=== PATIENT | female | born 1950 | race Asian ===

== ENCOUNTER 2016-07-30 08:12 | Outpatient (CLI) | payer OTHER ==
[2016-07-30 08:26] LABS: PLATELET COUNT 268 K/uL (152-353)
[2016-07-30 09:52] LABS: POTASSIUM 3.5 mmol/L (3.6-5.2)
== END 2016-07-30 19:21 | disposition home or self-care (01) ==
LOC: LAB 08:12
PROVIDERS: Orthopaedic Surgery
DX: M86.8X8 Other osteomyelitis, other site (principal)
CPT/HCPCS: 80053; 85027

== ENCOUNTER 2016-08-06 07:41 | Outpatient (CLI) | payer OTHER ==
[2016-08-06 08:00] LABS: PLATELET COUNT 378 K/uL (152-353)
[2016-08-06 08:16] LABS: POTASSIUM 3.1 mmol/L (3.6-5.2)
== END 2016-08-06 19:19 | disposition home or self-care (01) ==
LOC: LAB 07:41
PROVIDERS: Nurse Practitioner Family
DX: M86.8X8 Other osteomyelitis, other site (principal)
CPT/HCPCS: 80053; 85027

== ENCOUNTER 2016-08-13 08:09 | Outpatient (CLI) | payer OTHER ==
[2016-08-13 08:55] LABS: POTASSIUM 3.3 mmol/L (3.6-5.2)
[2016-08-13 09:34] LABS: PLATELET COUNT 316 K/uL (152-353)
== END 2016-08-13 22:08 | disposition home or self-care (01) ==
LOC: LAB 08:09
PROVIDERS: Nurse Practitioner Family
DX: M86.8X8 Other osteomyelitis, other site (principal)
CPT/HCPCS: 80053; 85027

== ENCOUNTER 2016-08-20 07:58 | Outpatient (CLI) | payer OTHER ==
[2016-08-20 08:52] LABS: PLATELET COUNT 392 K/uL (152-353)
[2016-08-21 13:38] LABS: POTASSIUM 3.4 mmol/L (3.6-5.2); SODIUM 137.4 mmol/L (136-145)
== END 2016-08-20 22:55 | disposition home or self-care (01) ==
LOC: LAB 07:58
PROVIDERS: Nurse Practitioner Family
DX: M86.00 Acute hematogenous osteomyelitis, unspecified site (principal)
CPT/HCPCS: 80053; 85027

== ENCOUNTER 2016-12-10 10:55 | Outpatient (CLI) | payer OTHER | END 2016-12-10 10:57 | disposition short-term general hospital (02) | LOC: AMB 10:55 | DX: M79.644 Pain in right finger(s) (principal) | CPT/HCPCS: A0425; A0429 ==

== ENCOUNTER 2017-02-18 10:38 | Outpatient (CLI) | payer OTHER | END 2017-02-18 19:27 | disposition home or self-care (01) | LOC: LAB 10:38 | DX: Z51.81 Encounter for therapeutic drug level monitoring (principal) | CPT/HCPCS: 80164 ==

== ENCOUNTER 2017-03-18 10:11 | Outpatient (CLI) | payer OTHER | END 2017-03-18 19:35 | disposition home or self-care (01) | LOC: LAB 10:11 | DX: Z51.81 Encounter for therapeutic drug level monitoring (principal) | CPT/HCPCS: 80164 ==

== ENCOUNTER 2017-03-29 07:05 | Outpatient (CLI) | payer OTHER | END 2017-03-29 08:05 | disposition home or self-care (01) | LOC: LAB 07:05 | DX: Z51.81 Encounter for therapeutic drug level monitoring (principal) | CPT/HCPCS: 80164 ==

== ENCOUNTER 2017-04-17 08:03 | Outpatient (CLI) | payer OTHER | END 2017-04-17 09:05 | disposition home or self-care (01) | LOC: LAB 08:03 | PROVIDERS: Internal Medicine | DX: Z79.899 Other long term (current) drug therapy (principal); E78.4 Other hyperlipidemia; Z51.81 Encounter for therapeutic drug level monitoring | CPT/HCPCS: 80061; 80076 ==

== ENCOUNTER 2017-08-09 10:42 | Outpatient (CLI) | payer OTHER | END 2017-08-09 23:37 | disposition home or self-care (01) | LOC: LAB 10:42 | DX: Z51.81 Encounter for therapeutic drug level monitoring (principal) | CPT/HCPCS: 80164 ==

== ENCOUNTER 2017-08-26 08:49 | Outpatient (CLI) | payer OTHER ==
[2017-08-26 09:09] LABS: PLATELET COUNT 290 K/uL (152-353)
[2017-08-26 09:29] LABS: POTASSIUM 4.1 mmol/L (3.6-5.2)
== END 2017-08-26 21:08 | disposition home or self-care (01) ==
LOC: LAB 08:49
PROVIDERS: Internal Medicine Hematology & Oncology
DX: R53.83 Other fatigue (principal); D50.8 Other iron deficiency anemias
CPT/HCPCS: 80053; 82728; 83540; 84466; 85027

== ENCOUNTER 2017-08-28 10:38 | Outpatient (CLI) | payer OTHER | END 2017-08-29 04:40 | disposition home or self-care (01) | LOC: RAD 10:38 | DX: J18.9 Pneumonia, unspecified organism (principal); M54.89 Other dorsalgia ==

== ENCOUNTER 2017-09-04 06:47 | Outpatient (CLI) | payer OTHER | END 2017-09-04 19:06 | disposition home or self-care (01) | LOC: LABW 06:47 | DX: E03.8 Other specified hypothyroidism (principal) | CPT/HCPCS: 84439; 84443 ==

== ENCOUNTER 2017-09-16 10:28 | Outpatient (CLI) | payer OTHER | END 2017-09-16 19:36 | disposition home or self-care (01) | LOC: LAB 10:28 | DX: R10.84 Generalized abdominal pain (principal); K21.9 Gastro-esophageal reflux disease without esophagitis | CPT/HCPCS: 86318 ==

== ENCOUNTER 2017-10-02 13:58 | Outpatient (CLI) | payer OTHER | END 2017-10-02 21:48 | disposition home or self-care (01) | LOC: LAB 13:58 | DX: D64.89 Other specified anemias (principal) | CPT/HCPCS: 85018 ==

== ENCOUNTER 2017-10-16 13:41 | Outpatient (CLI) | payer OTHER | END 2017-10-16 18:22 | disposition home or self-care (01) | LOC: LAB 13:41 | DX: D64.89 Other specified anemias (principal) | CPT/HCPCS: 85018 ==

== ENCOUNTER 2017-10-23 12:01 | Outpatient (CLI) | payer OTHER | END 2017-10-23 18:13 | disposition home or self-care (01) | LOC: LAB 12:01 | DX: D64.89 Other specified anemias (principal) | CPT/HCPCS: 85018 ==

== ENCOUNTER 2017-12-09 11:04 | Outpatient (CLI) | payer OTHER | END 2017-12-09 21:22 | disposition home or self-care (01) | LOC: LAB 11:04 | DX: D64.89 Other specified anemias (principal) | CPT/HCPCS: 85018 ==

== ENCOUNTER 2017-12-20 11:08 | Outpatient (CLI) | payer OTHER | END 2017-12-20 19:24 | disposition home or self-care (01) | LOC: LAB 11:08 | DX: M62.81 Muscle weakness (generalized) (principal) | CPT/HCPCS: 82542 ==

== ENCOUNTER 2018-01-01 13:27 | Outpatient (CLI) | payer OTHER | END 2018-01-01 21:46 | disposition home or self-care (01) | LOC: LAB 13:27 | DX: D64.89 Other specified anemias (principal) | CPT/HCPCS: 85018 ==

== ENCOUNTER 2018-02-10 12:20 | Outpatient (CLI) | payer OTHER | END 2018-02-10 23:05 | disposition home or self-care (01) | LOC: LAB 12:20 | DX: D64.89 Other specified anemias (principal) | CPT/HCPCS: 85018 ==

== ENCOUNTER 2018-05-07 13:37 | Outpatient (CLI) | payer OTHER | END 2018-05-07 18:53 | disposition home or self-care (01) | LOC: LAB 13:37 | DX: D64.89 Other specified anemias (principal) | CPT/HCPCS: 85018 ==

== ENCOUNTER 2018-05-09 10:39 | Outpatient (CLI) | payer OTHER ==
[~2018-05-09] VITALS: Ht 152.4 cm; Wt 1.8 kg
== END 2018-05-09 19:22 | disposition home or self-care (01) ==
LOC: INF 10:39
PROC: 30233N1 Transfusion of Nonautologous Red Blood Cells into Peripheral Vein, Percutaneous Approach (ICD-10-PCS; principal; 2018-05-09)
DX: D64.9 Anemia, unspecified (principal)
CPT/HCPCS: 36430; 36591; 85014; 85018; 86850; 86900; 86901; 86922; J1644; P9016

== ENCOUNTER 2018-05-12 13:06 | Outpatient (CLI) | payer OTHER | END 2018-05-12 19:24 | disposition home or self-care (01) | LOC: LAB 13:06 | DX: D64.9 Anemia, unspecified (principal) | CPT/HCPCS: 85018 ==

== ENCOUNTER 2018-05-19 10:56 | Outpatient (CLI) | payer OTHER | END 2018-05-19 19:53 | disposition home or self-care (01) | LOC: LAB 10:56 | DX: M62.81 Muscle weakness (generalized) (principal) | CPT/HCPCS: 82542 ==

== ENCOUNTER 2018-05-30 10:48 | Emergency (ER) | payer OTHER ==
[~2018-05-30] VITALS: Ht 152.4 cm; Wt 96.2 kg
[2018-05-30 15:20] VITALS: BP 151/92; TEMP 97.8
== END 2018-05-30 15:20 | disposition home or self-care (01) ==
LOC: ED 10:48
DX: S72.144A Nondisplaced intertrochanteric fracture of right femur, initial encounter for closed fracture (principal); R10.2 Pelvic and perineal pain; Z51.81 Encounter for therapeutic drug level monitoring
CPT/HCPCS: 82542; 96372; 99283; J1885

== ENCOUNTER 2018-05-30 10:58 | Outpatient (CLI) | payer OTHER | END 2018-05-30 21:49 | disposition home or self-care (01) | LOC: LAB 10:58 | DX: Z51.81 Encounter for therapeutic drug level monitoring (principal) | CPT/HCPCS: 82542 ==

== ENCOUNTER 2018-06-04 14:39 | Outpatient (CLI) | payer OTHER | END 2018-06-04 20:35 | disposition home or self-care (01) | LOC: LAB 14:39 | DX: D64.89 Other specified anemias (principal) | CPT/HCPCS: 85018 ==